=== PATIENT | female | born 1945 ===

== ENCOUNTER 2022-07-23 08:07 | Day surgery (SDC) | payer MEDICARE, BC, SELFPAY ==
[2022-07-23] VITALS (7 sets, daily range): BP systolic 112–153; BP diastolic 50–80; PULSE 67–94; RESP 11–16; TEMP 36.5–36.9; O2SAT 95–100; BMI 22.8
--- NOTE | 2022-07-23 | PATH_ITS ---
[facility] Accession Number: [id number] No. of containers..05 Tissue . 01 Material submitted: . PART A: gastrointestinal site - ANTRUM BIOPSY PART B: small bowel - TI COLON BIOPSY PART C: colon - ASCENDING COLON BIOPSIES PART D: colon - HEPATIC FLEXURE COLON POLYPS PART E: colon - HEPATIC FLEXURE COLON BIOPSIES . 01 Clinical history: . EGD, COLONOSCOPY . 01 Diagnosis: A. Stomach Antrum, Biopsy: Antral mucosa with mild chronic gastritis. Negative for Helicobacter by immunohistochemistry. Negative for intestinal metaplasia. Negative for dysplasia and malignancy. . B. Terminal Ileum, Biopsy: Mildly active ileitis. Please see comment. Negative for granulomas, dysplasia, and malignancy. . C. Ascending Colon, Biopsies: Colonic mucosa with mild distortion of the crypt architecture without active inflammation. Negative for granulomas, dysplasia, and malignancy. . D. Hepatic Flexure Polyps, Biopsies: Favor inflammatory polyps. Negative for dysplasia and malignancy. . E. Hepatic Flexure, Biopsies: Colonic mucosa with mild distortion of the crypt architecture and focal erosion. Negative for granulomas, dysplasia, and malignancy. [facility] 07/30/2022 1706 Local . 01 Comment: B. The terminal ileum biopsy shows mild neutrophilic activity in a background of mild distortion of the crypt architecture and rare pseudopyloric metaplasia suggestive of chronic inflammation. The principal differential diagnosis includes medication-related mucosal injury (i.e., NSAIDs) and Crohn's disease. . C-E: The ascending colon and hepatic flexure biopsies show active inflammation with distortion of the crypt architecture. No obvious viral cytopathic effects or parasitic organisms are identified. The differential diagnosis includes infection, medication-related mucosal injury, diverticular disease-associated colitis, and idiopathic inflammatory bowel disease. . 01 Electronically signed: . Vernell Heard MD, Pathologist NPI- [id number] . 01 Gross description: . Part A: ANTRUM BIOPSY: Received in formalin are 2 fragment(s) of [place], soft tissue measuring 0.2 x 0.1 x 0.1 cm to 0.3 x 0.2 x 0.2 cm submitted entirely in 1 cassette(s) Part B: TI COLON BIOPSY: Received in formalin are 2 fragment(s) of [place], soft tissue measuring 0.2 x 0.2 x 0.2 cm to 0.3 x 0.2 x 0.2 cm submitted entirely in 1 cassette(s) Part C: ASCENDING COLON BIOPSIES: Received in formalin are 4 fragment(s) of [place], soft tissue measuring 0.1 x 0.1 x 0.1 cm to 0.3 x 0.2 x 0.2 cm submitted entirely in 1 cassette(s) Part D: HEPATIC FLEXURE COLON POLYPS: Received in formalin are 2 fragment(s) of [place], soft tissue measuring 0.1 x 0.1 x 0.1 cm to 0.3 x 0.3 x 0.2 cm submitted entirely in 1 cassette(s) Part E: HEPATIC FLEXURE COLON BIOPSIES: Received in formalin are multiple fragment(s) of [place], soft tissue measuring 0.1 x 0.1 x 0.1 cm to 0.4 x 0.4 x 0.2 cm submitted entirely in 1 cassette(s) /[facility] 07/23/2022 2336 Local . 01 Microscopic: . A. An immunohistochemical stain was performed to evaluate for Helicobacter organisms and is negative. The control stain showed appropriate reactivity. . D-E: CMV immunohistochemical stains were performed on blocks D and E in order to evaluate for CMV antigen and are both negative. The control stain showed appropriate reactivity. . * This test was developed and its performance characteristics determined by [employer]. It has not been cleared or approved by the U.[place]. Food and Drug Administration. The FDA has determined that such clearance or approval is not necessary. This test is used for clinical purposes. It should not be regarded as investigational or for research. . 01 Pathologist provided ICD-10: R19.5, R10.13 . 01 CPT . 076002, 626540, 896688, 273507, 289337, [id number] Specimen Comment: A courtesy copy of this report has been sent to [phone] Performed at: 01 [facility] [address], [place], [place] [id number] MD Hari Anderson MD Phone: [phone]
[2022-07-23] MEDS: LACTATED RINGERS 1,000 ML 84 ML IV (08:48)
--- NOTE | 2022-07-23 09:41 | PM.PREOP ---
Pre-operative Note COVID-19 COVID-19 status: Negative Result date/Date tested (Pos, Neg/Pending): 07/22/22 Interval Note History & Physical reviewed/Exam performed by Physician: Yes Changes to H&P: No ASA Class (for procedural sedation): II
[2022-07-23] MEDS: MIDAZOLAM 5 MG/5 ML VIAL 12 MG IV (10:15)
[2022-07-23] MEDS: fentaNYL 100 MCG/2 ML INJ 200 MCG IV (10:33)
[2022-07-23] MEDS: LIDOCAINE 4% SOLN 50 ML 20 ML TOP (10:38)
--- NOTE | 2022-07-23 10:41 | P.OP.EGD&C_ITS ---
Operative Date/Time/Diagnoses Date of procedure: 07/23/22 Time of procedure: 10:41 Pre-op diagnosis: Dyspepsia and positive Cologuard test Post-op diagnosis: same Procedure & Clinicians Study performed: EGD and colonoscopy Same procedure as scheduled: Yes Surgeon: Jacobo Ramirez Procedure Notes Procedure in detail: Surgeon: Jacobo Ramirez MD Procedure in detail: A timeout was performed. A bite blocked was placed and monitors were attached to the patient. The patient was positioned in a left lateral decubitus position. Sedation was administered with Versed and fentanyl. Once the patient was sedated the endoscope was inserted through the bite block and passed through the esophagus and stomach and into the duodenum. The duodenum appeared normal. The duodenal bulb appeared normal. The scope was withdrawn into the stomach in the antrum was inspected. No abnormalities were noted however random biopsies were taken from the antrum to rule out H pylori. The rest of the stomach looked normal. The endoscope was retroflexed and no hiatal hernia was noted. The endoscope was straightned and withdrawn into the esophagus. No abnormalities were noted in the esophagus. Findings: Normal esophagus, stomach and duodenum Next we repositioned the patient for a colonoscopy. A digital rectal exam was performed and was normal. The colonoscope was inserted and advanced to the cecum. The appendiceal orifice was identified and photographed. The terminal ileum was intubated and appeared normal and random biopsies were taken from the terminal ileum. The scope was slowly withdrawn over greater than 6 minutes. There were linear lesions throughout the colon but greatest near the hepatic flexure. These lesions appeared to be fibrotic polypoid mucosa heaped up around the edges. Random biopsies were taken from the ascending colon and the hepatic flexure around these lesions. Similar lesions were seen at the splenic flexure but were more subtle than at the hepatic flexure. The sigmoid colon and rectum were essentially normal. The scope was retroflexed in the rectum no ab normalities were noted there. Findings: Linear fibrotic appearing lesions with heaped up polypoid mucosa around the edges greatest in the hepatic flexure EBL: 20 mL Scope withdrawal time: 19 Sedation minutes: 51 Post-procedure Disposition: PACU
== END 2022-07-23 11:32 | disposition home or self-care (01) ==
PROVIDERS: Family Provider Family Medicine Geriatric Medicine; PCP Family Medicine; Referring Provider Surgery; Visit Provider Surgery
PROC: 0DJ08ZZ Inspection of Upper Intestinal Tract, Via Natural or Artificial Opening Endoscopic (ICD-10-PCS; CPT 43235; principal; 2022-07-23 09:15)
PROC: 0DJD8ZZ Inspection of Lower Intestinal Tract, Via Natural or Artificial Opening Endoscopic (ICD-10-PCS; CPT 45378; 2022-07-23 09:15)
DX: R19.5 Other fecal abnormalities (principal); R10.13 Epigastric pain; K29.50 Unspecified chronic gastritis without bleeding; K50.00 Crohn's disease of small intestine without complications; K63.5 Polyp of colon
CPT/HCPCS: 45380; 43239; 99152; 99153; J2250; J3010